=== PATIENT | female | born 1965 | race Hispanic/Latino ===

== ENCOUNTER 2024-05-16 10:13 | Emergency (ER) | payer SELFPAY ==
[~2024-05-16] VITALS: Ht 157.5 cm; Wt 81.6 kg
[2024-05-16 10:36] VITALS: PULSE 60; RESP 18; TEMP 98.3; O2SAT 100
[2024-05-16] MEDS ORDERED: TRAMADOL HCL 50 MG TAB PO ONE (11:15)
== END 2024-05-16 11:17 | disposition home or self-care (01) ==
LOC: ER 10:20
DX: M25.562 Pain in left knee (principal); M76.52 Patellar tendinitis, left knee; I10 Essential (primary) hypertension
CPT/HCPCS: 99282